=== PATIENT | male | born 1945 | race Caucasian/White ===

== ENCOUNTER → 2019-01-17 | Outpatient (CLI) | payer MEDICARE, OTHER | END | disposition home or self-care (01) | LOC: OIH 15:39 | PROVIDERS: ATTEND Family Medicine | DX: S39.012A Strain of muscle, fascia and tendon of lower back, initial encounter (principal); M47.26 Other spondylosis with radiculopathy, lumbar region; M48.061 Spinal stenosis, lumbar region without neurogenic claudication; X58.XXXA Exposure to other specified factors, initial encounter; Y93.89 Activity, other specified; Y92.89 Other specified places as the place of occurrence of the external cause; Y99.8 Other external cause status | CPT/HCPCS: 72100 ==